=== PATIENT | female | born 1970 | race Caucasian/White ===

== ENCOUNTER 2017-08-10 10:43 | Emergency (ER) | payer MEDICAID ==
--- NOTE | 2017-08-10 11:57 | EDM.PDOC ---
ED HPI GENERAL MEDICAL PROBLEM - General Chief Complaint: Neuro Symptoms/Deficits Stated Complaint: WEAKNESS/SHAKING/FALLING/NEURO ISSUES?? Time Seen by Provider: 08/10/17 11:30 Source of Information: Reports: Patient, Provider History Limitations: Reports: No Limitations - History of Present Illness INITIAL COMMENTS - FREE TEXT/NARRATIVE: 46-year-old female with progressively worsening tremor especially with activity , however she says it's better when she is resting but on observation when she is actively doing something like drinking from a bottle or doing something on her phone it looks like it's improved with intentional activity. She was also having marked difficulty with speech was stuttering and hesitation on arrival which improved over the course of the hour. Severity: Moderate - Related Data Allergies Allergy/AdvReac Type Severity Reaction Status Date / Time hydrocodone Allergy Mild Itching Verified 08/10/17 11:18 codeine Allergy Itching Verified 08/10/17 11:18 Home Meds: Home Meds Atenolol [Tenormin] 25 mg PO DAILY 06/04/15 [History] FLUoxetine [PROzac] 40 mg PO DAILY 06/04/15 [History] Cyanocobalamin (Vitamin B-12) [Cyanocobalamin Injection] 1 injection IM ASDIRECTED 06/09/15 [History] Multivitamin with Minerals [Multiple Vitamin] 1 tab PO DAILY 06/09/15 [History] Acetaminophen/Diphenhydramine [Tylenol Pm Ex-Strength Caplet] 2 tab PO ASDIRECTED 01/19/16 [History] Acyclovir 2 tab PO ASDIRECTED 01/19/16 [History] traMADol [Ultram] 100 mg PO QID 01/19/16 [History] valACYclovir HCl [Valtrex] 500 mg PO ASDIRECTED 01/19/16 [History] Celecoxib [CeleBREX] 400 mg PO DAILY 06/19/16 [History] Cetirizine HCl [Zyrtec] 10 mg PO DAILY PRN 06/19/16 [History] Cyclobenzaprine [Flexeril] 10 mg PO TID 06/19/16 [History] Hydrochlorothiazide 25 mg PO DAILY 06/19/16 [History] Omeprazole 20 mg PO DAILY 06/19/16 [History] Pregabalin [Lyrica] 50 mg PO BID 06/19/16 [History] Past Medical History HEENT History: Reports: Impaired Vision, Other (See Below) Other HEENT History: double vision on and off. wears glasses Cardiovascular History: Reports: Hypertension Respiratory History: Reports: Asthma Gastrointestinal History: Reports: Cholelithiasis Genitourinary History: Reports: UTI, Recurrent, Other (See Below) Other Genitourinary History: diverticulitis of urethera. diverticulitis of urethera [employer] History: Reports: Endometriosis, Other OB/BYN History: breast reduction Musculoskeletal History: Reports: Back Pain, Chronic, Fracture, Neck Pain, Chronic Other Musculoskeletal History: Reports h/o neck problems with very infrequent Chiropractic visits to aid comfort at lower cervical/upper thoracic vertebrae. 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 Recent neck fx. C2 Neurological History: Reports: Concussion, Headaches, Chronic, Head Trauma Psychiatric History: Reports: Anxiety, Depression Endocrine/Metabolic History: Reports: None Hematologic History: Reports: Anemia, B12 Deficiency Immunologic History: Reports: None Oncologic (Cancer) History: Reports: None Dermatologic History: Reports: Other (See Below) Other Dermatologic History: acne - Infectious Disease History Infectious Disease History: Reports: Herpes - Past Surgical History HEENT Surgical History: Reports: LASIK, Naso-Sinus Surgery, Oral Surgery Respiratory Surgical History: Reports: None GI Surgical History: Reports: Bariatric Procedure, Cholecystectomy Female Surgical History: Reports: Breast Biopsy, Breast Reduction Social & Family History - Tobacco Use Smoking Status *Q: Unknown Ever Smoked Years of Tobacco use: 10 Packs/Tins Daily: 1 Used Tobacco, but Quit: Yes Month Tobacco Last Used: September Second Hand Smoke Exposure: No - Caffeine Use Caffeine Use: Reports: Coffee, Soda - Alcohol Use Days Per Week of Alcohol Use: 2 Number of Drinks Per Day: 1 Total Drinks Per Week: 2 - Recreational Drug Use Recreational Drug Use: No ED ROS GENERAL - Review of Systems Review Of Systems: See Below Constitutional: Denies: Fever, Chills Respiratory: Denies: Shortness of Breath, Cough Cardiovascular: Denies: Chest Pain GI/Abdominal: Denies: Abdominal Pain, Nausea, Vomiting : Reports: Incontinence (Urinary incontinence is occasional and random) Skin: Reports: No Symptoms Neurological: Reports: Tremors, Difficulty Walking, Weakness. Denies: Headache , Numbness, Tingling ED EXAM, GENERAL - Physical Exam Exam: See Below Exam Limited By: No Limitations General Appearance: Alert, Anxious Eye Exam: Bilateral Eye: EOMI Respiratory/Chest: No Respiratory Distress, Lungs Clear Cardiovascular: Regular Rate, Rhythm GI/Abdominal: Non-Tender Extremities: No: Pedal Edema Neurological: Alert, Oriented, Other (Persistent and fairly dramatic generalized resting tremor including stuttering speech) Psychiatric: Anxious Skin Exam: Warm, Dry Course - Vital Signs Last Recorded V/S: Last Vital Signs Temp 97.1 F 08/10/17 13:14 Pulse 86 08/10/17 14:14 Resp 14 08/10/17 14:14 BP 126/84 08/10/17 14:14 Pulse Ox 98 08/10/17 14:14 - Orders/Labs/Meds Orders: Active Orders 24 hr Category Date Time Status Head wo Cont [CT] Stat Exams 08/10/17 11:49 Taken Labs: Laboratory Tests 08/10/17 08/10/17 08/10/17 Range/Units 11:55 11:55 11:55 WBC 4.8 (4.5-11.0) K/uL RBC 3.98 (3.30-5.50) M/uL Hgb 12.3 (12.0-15.0) g/dL Hct 36.8 (36.0-48.0) % MCV 93 (80-98) fL MCH 31 (27-31) pg MCHC 33 (32-36) % Plt Count 332 (150-400) K/uL Neut % (Auto) 38 (36-66) % Lymph % (Auto) 46 H (24-44) % Cooper % (Auto) 13 H (2-6) % Eos % (Auto) 3 (2-4) % Baso % (Auto) 0 (0-1) % ESR 25 (0-25) mm/hr Sodium 138 L (140-148) mmol/L Potassium 4.2 (3.6-5.2) mmol/L Chloride 102 (100-108) mmol/L Carbon Dioxide 29 (21-32) mmol/L Anion Gap 11.2 (5.0-14.0) mmol/L BUN 10 D (7-18) mg/dL Creatinine 0.8 (0.6-1.0) mg/dL Est Cr Clr Drug Dosing 79.91 mL/min Estimated GFR (MDRD) > 60 (>60) Glucose 69 L (74-106) mg/dL Calcium 8.6 (8.5-10.1) mg/dL Total Bilirubin 0.3 (0.2-1.0) mg/dL AST 21 (15-37) U/L ALT 35 (12-78) U/L Alkaline Phosphatase 172 H (46-116) U/L C-Reactive Protein (0.0-0.3) mg/dL Total Protein 6.2 L (6.4-8.2) g/dL Albumin 2.8 L (3.4-5.0) g/dL Globulin 3.4 (2.3-3.5) g/dL Albumin/Globulin Ratio 0.8 L (1.2-2.2) 08/10/17 Range/Units 11:55 WBC (4.5-11.0) K/uL RBC (3.30-5.50) M/uL Hgb (12.0-15.0) g/dL Hct (36.0-48.0) % MCV (80-98) fL MCH (27-31) pg MCHC (32-36) % Plt Count (150-400) K/uL Neut % (Auto) (36-66) % Lymph % (Auto) (24-44) % Cooper % (Auto) (2-6) % Eos % (Auto) (2-4) % Baso % (Auto) (0-1) % ESR (0-25) mm/hr Sodium (140-148) mmol/L Potassium (3.6-5.2) mmol/L Chloride (100-108) mmol/L Carbon Dioxide (21-32) mmol/L Anion Gap (5.0-14.0) mmol/L BUN (7-18) mg/dL Creatinine (0.6-1.0) mg/dL Est Cr Clr Drug Dosing mL/min Estimated GFR (MDRD) (>60) Glucose (74-106) mg/dL Calcium (8.5-10.1) mg/dL Total Bilirubin (0.2-1.0) mg/dL AST (15-37) U/L ALT (12-78) U/L Alkaline Phosphatase (46-116) U/L C-Reactive Protein 0.16 (0.0-0.3) mg/dL Total Protein (6.4-8.2) g/dL Albumin (3.4-5.0) g/dL Globulin (2.3-3.5) g/dL Albumin/Globulin Ratio (1.2-2.2) - Re-Assessments/Exams Free Text/Narrative Re-Assessment/Exam: 08/10/17 13:53 CBC, CMP, sedimentation rate and CRP were obtained and all are reassuring. Head CT was normal. When I went in to discuss results with the patient her symptoms seemed to have resolved. I discussed the findings with her primary care provider Seven Loaiza, an MRI of the head will be scheduled and she will be arranged a follow-up appointment. No further medications at this time. Departure - Departure Time of Disposition: 14:25 Disposition: Home, Self-Care 01 Condition: Good Clinical Impression: Tremor, Dysarthria - Discharge Information Instructions: Tremor Referrals: Seven Loaiza PA-C [Primary Care Provider] - Forms: ED Department Discharge Care Plan Goals: Continue your current medications. You'll be informed by your primary provider of an MRI time and follow-up. - My Orders Last 24 Hours: My Active Orders 08/10/17 11:49 Head wo Cont [CT] Stat - Assessment/Plan Last 24 Hours: My Active Orders 08/10/17 11:49 Head wo Cont [CT] Stat
[2017-08-10 14:14] VITALS: BP 126/84
== END 2017-08-10 14:25 | disposition home or self-care (01) ==
LOC: JP.ED 10:43
DX: R25.1 Tremor, unspecified (principal); R47.1 Dysarthria and anarthria; I10 Essential (primary) hypertension; J45.909 Unspecified asthma, uncomplicated; Z79.899 Other long term (current) drug therapy; Z88.6 Allergy status to analgesic agent; Z87.891 Personal history of nicotine dependence; Z88.5 Allergy status to narcotic agent
CPT/HCPCS: 36415; 70450; 80053; 85025; 85651; 86140; 99285-25

== ENCOUNTER 2021-10-17 06:34 | Day surgery (SDC) | payer MEDICAID ==
[2021-10-17] MEDS: Sodium Chloride 0.9% 1,000 ML IV SCH (06:51)
[2021-10-17] MEDS ORDERED: Midazolam 1 MG/ML 2 ML SDV ONE (07:24)
[2021-10-17] MEDS ORDERED: Propofol 200 MG/20 ML SDV ONE (07:24)
[2021-10-17] MEDS ORDERED: fentaNYL 100 MCG/2 ML SDV ONE (07:24)
[2021-10-17 09:24] VITALS: PULSE 88
[2021-10-17 09:32] VITALS: BP 138/96
== END 2021-10-17 09:34 | disposition home or self-care (01) ==
LOC: JP.SDS 06:34
PROVIDERS: ATTEND Surgery
DX: Z12.11 Encounter for screening for malignant neoplasm of colon (principal); K21.9 Gastro-esophageal reflux disease without esophagitis; F32.A Depression, unspecified; Z80.0 Family history of malignant neoplasm of digestive organs
CPT/HCPCS: 81025; J2250; J2704; J3010; J7030